=== PATIENT | male | born 1965 | race Caucasian/White ===

== ENCOUNTER 2017-03-16 08:41 | Emergency (ER) | payer OTHER ==
[~2017-03-16] VITALS: Ht 175.3 cm; Wt 97.8 kg
[~2017-03-16 08:41] MED LIST: AUGMENTIN875 MG PO; CHOLESTEROL MED; DILANTIN; DILANTIN BRAND100 MG PO; LIPITOR80 MG PO; LOFIBRA,TRIGLI160 MG PO; NAPROSYN500 MG PO; NEURONTIN; NORCO 5/3251 TABLET PO; PHENOBARBITAL; PHENOBARBITAL60 MG PO; PHENYTOIN SODI200 MG PO; SIMVASTATIN; SUDAFED 12-HOU120 MG PO
[2017-03-16 09:48] LABS: EOSINOPHIL (%) 1.3 % (0-5); EOSINOPHIL COUNT 0.1 K/uL (0-0.3); HEMATOCRIT 47.6 % (38.0-50.0); IMMATURE GRANULOCYTE (%) 0.6 % (0.0-0.7); IMMATURE GRANULOCYTE COUNT 0.1 K/uL; INSTRUMENT ABS NEUTROPHIL CT 7.3 K/uL; LYMPHOCYTE COUNT 1.4 K/uL (1.0-2.8); MCHC 33.4 G/DL (30.0-36.0); MCV 89.8 FL (86-99); MEAN PLAT.VOLUME 8.9 uM^3 (9.0-12.4); MONOCYTE (%) 5.2 % (3-12); MONOCYTE COUNT 0.5 K/uL (0-0.8); NEUTROPHIL (%) 77.8 % (45-76); NEUTROPHIL COUNT 7.3 K/uL (1.8-6.4); PLATELET COUNT 245 K/uL (156-360); RBC DIS.WIDTH-CV 12.7 % (11.8-14.6); RBC DIS.WIDTH-SD 42.5 % (39-53); WHITE BLOOD COUNT 9.4 K/uL (4.1-10.2)
[2017-03-16 09:59] LABS: CHLORIDE 106 mEq/L (99-109); POTASSIUM 4.3 mEq/L (3.7-5.4); SODIUM 138 mEq/L (136-147)
[2017-03-16 10:01] LABS: GLUCOSE 112 mg/dL (70-99)
[2017-03-16 10:02] LABS: ANION GAP 10 MEQ/L (2-14)
[2017-03-16 10:05] LABS: GFR ESTIMATE (CALCULATED) > 59 mL/min/
[2017-03-16 10:06] LABS: UREA NITROGEN (BUN) 13 mg/dL (9-23)
[2017-03-16 12:19] LABS: SAMPLE HEMOLYSIS CHECK 0; SAMPLE ICTERIC CHECK 0; SAMPLE LIPEMIA CHECK 0
[2017-03-16 12:20] LABS: PHENOBARBITAL 12.7 MCG/ML (15-40)
[2017-03-16 13:51] VITALS: BP 120/79
== END 2017-03-16 13:52 | disposition home or self-care (01) ==
LOC: EME 08:41
PROVIDERS: Emergency Medicine
DX: G40.909 Epilepsy, unspecified, not intractable, without status epilepticus (principal); E78.5 Hyperlipidemia, unspecified; F17.200 Nicotine dependence, unspecified, uncomplicated
CPT/HCPCS: 80048; 80164; 80184; 80185; 85025; 99281; 99284; J1165; J7050

== ENCOUNTER 2017-06-12 17:57 | Emergency (ER) | payer OTHER ==
[~2017-06-12] VITALS: Ht 175.3 cm; Wt 99.4 kg
[2017-06-12] MEDS ORDERED: ULTRAM50 MG PO (18:18)
[2017-06-12 18:33] VITALS: BP 115/96
== END 2017-06-12 18:36 | disposition home or self-care (01) ==
LOC: EME 17:57
DX: B07.0 Plantar wart (principal); E78.5 Hyperlipidemia, unspecified; F17.200 Nicotine dependence, unspecified, uncomplicated
CPT/HCPCS: 99281; 99284

== ENCOUNTER 2018-04-02 15:42 | Emergency (ER) | payer OTHER ==
[~2018-04-02] VITALS: Ht 175.3 cm; Wt 104.9 kg
[~2018-04-02 15:42] MED LIST changes: +ULTRAM50 MG PO
[2018-04-02] MEDS ORDERED: PHENOBARBITAL64.8 MG PO (16:56)
[2018-04-02 17:17] VITALS: BP 134/92
== END 2018-04-02 17:21 | disposition home or self-care (01) ==
LOC: EME 15:42
DX: Z76.0 Encounter for issue of repeat prescription (principal); G40.909 Epilepsy, unspecified, not intractable, without status epilepticus
CPT/HCPCS: 99281; 99284